=== PATIENT | male | born 1930 | race Two or more races ===

== ENCOUNTER 2020-10-31 08:50 | Emergency (ER) | payer MEDICAID, OTHER ==
[~2020-10-31] VITALS: Ht 165.1 cm; Wt 64.9 kg
[2020-10-31] MEDS ORDERED: ASPirin 81 mg TAB PO ONE (09:45)
[2020-10-31 09:49] LABS: Basophils # (auto) 0.1 10 ^3/uL (0-0.2); Basophils % (auto) 1.1 % (0.0-2.0); Eosinophils # (auto) 0.1 10 ^3/uL (0-0.8); Hematocrit 37.7 % (41.0-53.0); Hemoglobin 13.3 g/dL (13.5-17.5); Lymphocytes # (auto) 1.9 10 ^3/uL (0.4-5.4); Mean Corpuscular Hemoglobin 32.7 pg (28.0-32.0); Mean Corpuscular Hgb Conc. 35.3 g/dL (32.0-36.0); Mean Corpuscular Volume 92.7 fL (80.0-100.0); Monocytes # (auto) 0.5 10 ^3/uL (0-1.3); Monocytes % (auto) 8.5 % (0.0-12.0); Neutrophils # (auto) 3.5 10 ^3/uL (1.6-8.6); Neutrophils % (auto) 57.4 % (37.0-80.0); Nucleated Red Blood Cells % 0.1 %; Red Blood Cells 4.07 10^6/uL (4.5-5.90); Red Cell Distribution Width 14.1 % (11.8-14.3); White Blood Cell 6.2 10^3/uL (4.4-10.8)
[2020-10-31] MEDS ORDERED: ONDANSETRON HCL 4 MG/2 ML VIAL IV ONE (10:00)
[2020-10-31] MEDS ORDERED: MORPHINE SULFATE INJECTION 2 MG/ML SYRG IV ONE (10:00)
[2020-10-31 10:04] LABS: Anion Gap 7 (5-15); Blood Urea Nitrogen 17 mg/dL (7-18); Calcium 8.8 mg/dL (8.5-10.1); Carbon Dioxide 24 mmol/L (21-32); Chloride 107 mmol/L (98-107); Glucose 109 mg/dL (74-106); Sodium 138 mmol/L (136-145)
[2020-10-31 10:11] LABS: Alanine Aminotransferase 25 U/L (16-61); Alkaline Phosphatase 104 U/L (45-117); Aspartate Aminotransferase 17 U/L (15-37); Bilirubin, Total 0.9 mg/dL (0.2-1.0); GFR African American 128 mL/min; GFR Non-African American 106 mL/min; Total Protein 7.2 g/dL (6.4-8.2)
[2020-10-31 11:56] VITALS: BP 142/54
== END 2020-10-31 12:24 | disposition home or self-care (01) ==
LOC: ER 08:50
DX: R07.89 Other chest pain (principal)
CPT/HCPCS: 36415; 70450; 71045; 80053; 83880; 84484; 85025; 93005; 96374; 96375; 99285; J2270; J2405

== ENCOUNTER 2020-11-20 10:26 | Emergency (ER) | payer MEDICAID, OTHER ==
[~2020-11-20] VITALS: Ht 172.7 cm; Wt 63.5 kg
[2020-11-20 11:40] VITALS: BP 159/49
== END 2020-11-20 12:59 | disposition home or self-care (01) ==
LOC: ER 10:26
DX: T78.40XA Allergy, unspecified, initial encounter (principal); X58.XXXA Exposure to other specified factors, initial encounter

== ENCOUNTER 2021-02-25 09:13 | Emergency (ER) | payer MEDICAID ==
[2021-02-25 10:25] VITALS: BP 100/61
== END 2021-02-25 10:56 | disposition home or self-care (01) ==
LOC: ER 09:13
DX: L25.9 Unspecified contact dermatitis, unspecified cause (principal); I10 Essential (primary) hypertension

== ENCOUNTER 2021-03-31 12:12 | Emergency (ER) | payer MEDICAID ==
[~2021-03-31] VITALS: Ht 172.7 cm; Wt 72.6 kg
[2021-03-31] MEDS ORDERED: methylPREDNISolone SOD SUCC 125 MG/2 ML VL IM ONE (17:00)
[2021-03-31] MEDS ORDERED: diphenhdrAMINE HCL 50 MG/1 ML VL IM ONE (17:00)
[2021-03-31 17:18] VITALS: BP 133/55
== END 2021-03-31 17:26 | disposition home or self-care (01) ==
LOC: ER 12:12
DX: T78.40XA Allergy, unspecified, initial encounter (principal); I10 Essential (primary) hypertension; X58.XXXA Exposure to other specified factors, initial encounter
CPT/HCPCS: 96372; 99284; J1200; J2930